=== PATIENT | female | born 1965 | race Caucasian/White ===

== ENCOUNTER 2021-08-17 12:19 | Day surgery (SDC) | payer BC, OTHER ==
[2021-08-08 13:47] LABS: EOSINOPHILS # (AUTO) 0.2 X10'3 (0-0.9); MEAN PLATELET VOLUME 8.9 FL (7.4-10.4); PRE OP HEMOGLOBIN 13.7 g/dL (12.0-16.0)
[2021-08-08 13:48] LABS: BASOPHILS % (AUTO) 0.6 % (0-1); EOSINOPHILS % (AUTO) 2.4 % (0-6); LYMPHOCYTES # (AUTO) 1.5 X10'3 (1.1-4.8); LYMPHOCYTES % (AUTO) 22.8 % (21-51); MEAN CORPUSCULAR HEMOGLOBIN 29.7 PG (27.0-31.0); MONOCYTES # (AUTO) 0.5 X10'3 (0-0.9); MONOCYTES % (AUTO) 7.9 % (2-12); NEUTROPHILS # (AUTO) 4.4 X10'3 (1.8-7.7); NEUTROPHILS % (AUTO) 66.3 % (42-75); PRE OP HEMATOCRIT 41.4 % (35.0-45.0); PRE OP PLATELET COUNT 273 X10'3 (140-440); RED CELL DISTRIBUTION WIDTH 13.9 % (11.5-14.5)
[2021-08-08 13:55] LABS: ALBUMIN 3.8 G/DL (3.4-5.0); ALBUMIN/GLOBULIN RATIO 1.1 (1.1-1.5); ALKALINE PHOSPHATASE 100 IU/L (46-116); BLOOD UREA NITROGEN 11 MG/DL (7-18); BUN/CREATININE RATIO 15.3 (6.6-38.0); CALCIUM 9.2 MG/DL (8.5-10.1); CHLORIDE 101 MMOL/L (99-107); CREATININE 0.72 MG/DL (0.40-0.90); PRE OP ALT 36 U/L (30-65); PRE OP ANION GAP 8 (8-16); PRE OP AST 19 U/L (10-37); PRE OP BILIRUB, TOTAL 0.4 MG/DL (0.0-1.0); PRE OP GLUCOSE 93 MG/DL (70-104); PRE OP PROTIME 10.3 SECONDS (9.0-12.0); PRE OP SODIUM 141 MMOL/L (135-145); TOTAL CARBON DIOXIDE 31.6 MMOL/L (24-32); TOTAL PROTEIN 7.3 G/DL (6.4-8.2); eGFR 83 ML/MIN
[~2021-08-17] VITALS: Ht 172.7 cm; Wt 101.2 kg
[~2021-08-17 12:19] MED LIST: APIX5TAB3 PO; ATOR40TA PO; DULO20CA50 PO; GABA-530 PO; PRAM2.252 PO; clindamycin-Cleocin 900mg/D5W 50 ML IV ONE; famotidine 20mg tablet PO ONE; ringers solution, lacted 1,000 ML IV SCH; vancomycin 1,500 MG in NS 300ml IV soln IV ONE
[2021-08-17] MEDS ORDERED: ENOX40SY7 SUBCUT (13:26)
[2021-08-17] MEDS ORDERED: scopolamine 1mg/72 hr patch TD ONE (15:10)
[2021-08-17 15:26] VITALS: BP 151/96
[2021-08-17 15:36] VITALS: BP 151/96
[2021-08-17] MEDS ORDERED: hydrALAZINE 20mg/ml inj. IV PRN (17:25)
[2021-08-17] MEDS ORDERED: ondansetron/PF 4mg/2ml inj IV PRN (17:25)
[2021-08-17] MEDS ORDERED: morphine 4 MG/ML inj SYRINge IV PRN (17:25)
[2021-08-17] MEDS ORDERED: morphine 2 MG/ML inj. syringe IV PRN (17:25)
[2021-08-17] MEDS ORDERED: labetalol 20mg/4ml (5mg/ml) syringe IV PRN (17:25)
[2021-08-17] MEDS ORDERED: meperidine/PF 25mg/ml syringe IV PRN (17:25)
[2021-08-17] MEDS ORDERED: ringers solution, lacted 1,000 ML IV SCH (17:25)
[2021-08-17] MEDS ORDERED: proCHLORperazine 10 MG/2 ml inj IV PRN (17:25)
[2021-08-17] MEDS ORDERED: acetaminophen 1,000mg/100ml IV 100 ML IV PRN (17:25)
[2021-08-17] MEDS ORDERED: enoxaparin 40mg/0.4ml syringe SUBCUT ONE (17:40)
--- NOTE | 2021-08-17 18:08 | NUR ---
PT SURGERY CANCELED BY DR MCMILLAN. IV DC'D, LOVENOX 40MG SUBCUT GIVEN IN RIGHT BAD. PT SURGERY RESCHEDULED FOR SUNDAY PER DR MCMILLAN. PT WHEELED OUT OF HOSPITAL TO P[T CAR WHERE WAS WAITING FOR HER. DR MCMILLAN INFORMED PT TO COME TO HIS OFFICE TOMORROW FOR LOVENOX. Addendum: 08/17/21 at 1817 by Larissa Bernardo RN, RN Amended: Links added.
== END 2021-08-17 18:05 | disposition home or self-care (01) ==
LOC: PAS 12:19
PROVIDERS: ATTEND Orthopaedic Surgery
DX: T84.84XA Pain due to internal orthopedic prosthetic devices, implants and grafts, initial encounter (principal); Z53.8 Procedure and treatment not carried out for other reasons; I10 Essential (primary) hypertension; J45.909 Unspecified asthma, uncomplicated; M19.90 Unspecified osteoarthritis, unspecified site; E66.9 Obesity, unspecified; Z68.33 Body mass index [BMI] 33.0-33.9, adult; Z87.442 Personal history of urinary calculi; Z86.16 Personal history of COVID-19; Z87.891 Personal history of nicotine dependence; Z79.01 Long term (current) use of anticoagulants; Z20.822 Contact with and (suspected) exposure to COVID-19; Z79.899 Other long term (current) drug therapy; Z72.89 Other problems related to lifestyle; Z98.890 Other specified postprocedural states; Z90.710 Acquired absence of both cervix and uterus; Z88.8 Allergy status to other drugs, medicaments and biological substances; Z88.1 Allergy status to other antibiotic agents; Z91.011 Allergy to milk products; Z91.040 Latex allergy status; Z91.09 Other allergy status, other than to drugs and biological substances; Y83.8 Other surgical procedures as the cause of abnormal reaction of the patient, or of later complication, without mention of misadventure at the time of the procedure; Y92.89 Other specified places as the place of occurrence of the external cause
CPT/HCPCS: 36415; 80053; 85025; 85610; 85730; 87081; 93005; U0003; U0005; 82948; J1650; J3370; J7040; J7120

== ENCOUNTER 2021-08-19 10:30 | Day surgery (SDC) | payer BC ==
[~2021-08-19] VITALS: Ht 172.7 cm; Wt 101.4 kg
[2021-08-19] VITALS (11 sets, daily range): BP systolic 76–152; BP diastolic 42–96
[~2021-08-19 10:30] MED LIST changes: +ENOX40SY7 SUBCUT
[2021-08-19] MEDS ORDERED: scopolamine 1.5mg patch.TD72 (72-hour patch) TD ONE (11:40)
--- NOTE | 2021-08-19 11:53 | NUR ---
MED WOULD NOT SCAN
[2021-08-19] MEDS ORDERED: diphenhydrAMINE 50 mg/ml inj IV ONE (13:15)
--- NOTE | 2021-08-19 13:30 | NUR ---
PIV TO RIGHT A/C INFILTRATED WHILE VANCOMYCIN INFUSING-ACCORDING TO PUMP, 60CC INFUSED, AREA ITCHY RED AND WARM, IV D/CD-CANULA INTACT WARM PACK PLACED ON AREA. 25MG BENADRYL GIVEN IVP. PIV 20G TO LEFT A/C STARTED WITH EXCELLENT BLOOD RTN, VANCO RESTARTED SLOWLY AT 50CC/HR-EDUCATED PT TO INFORM OF ANY PAIN OR CHANGES, WILL MONITOR FREQUENTLY. CALL LIGHT IN REACH.
[2021-08-19] MEDS ORDERED: vancomycin 1,000mg inj ONE (14:08)
--- NOTE | 2021-08-19 14:10 | NUR ---
PT ITCHING BETTER SINCE BENADRYL, REDNESS AND DISCOMFORT SUBSIDING TO AFFECTED AREA -WARM PACKS STILL IN PLACE, L PIV WORKING WELL. PT COMFORTABLE, WATCHING MOVIE ON PHONE. DR. MARCELO IN TO SEE PT.-NO NEW ORDERS GIVEN.
[2021-08-19] MEDS ORDERED: fentaNYL/PF 50MCG/1 ML 2ML syringe ONE (14:27)
[2021-08-19] MEDS ORDERED: MIDAZolam 1 MG/ML 5ML VIAL ONE (14:27)
[2021-08-19] MEDS ORDERED: meperidine/PF 25mg/ml syringe IV PRN ×3 (15:30)
[2021-08-19] MEDS ORDERED: morphine 4 MG/ML inj SYRINge IV PRN (15:30)
[2021-08-19] MEDS ORDERED: morphine 2 MG/ML inj. syringe IV PRN (15:30)
[2021-08-19] MEDS ORDERED: ondansetron/PF 4mg/2ml inj IV PRN (15:30)
[2021-08-19] MEDS ORDERED: proCHLORperazine 10 MG/2 ml inj IV PRN (15:30)
[2021-08-19] MEDS ORDERED: ringers solution, lacted 1,000 ML IV SCH (15:30)
[2021-08-19] MEDS ORDERED: BUPIVAcaine/PF 2.5 mg/ml (0.25%) 30ml vial ONE (15:45)
[2021-08-19] MEDS ORDERED: propofol inj 20 ML IV ONE ×2 (16:05)
--- NOTE | 2021-08-19 16:07 | NUR ---
Received from OR via [facility] , accompanied by Anesthesiologist DAVIAN and report given by Anesthesiolgist. T9 SENSATION LEVEL AT THIS TIME FROM SPINAL ANESTHESIA. VSS. DENIES PAIN AT THIS TIME. LEFT THIGH DRESSED IN RICARDO BANDAGE. Addendum: 08/19/21 at 1627 by Anton Bernardo RN, RN Amended: Links added.
[2021-08-19] MEDS ORDERED: HYDROcodone/acetaminophen 10/325mg tab PO PRN ×2 (17:20)
--- NOTE | 2021-08-19 17:27 | NUR ---
PATIENT HAS MET ALL CRITERIA FOR TRANSFER TO THE PCU FLOOR. VSS. DRESSINGS INTACT. BED LOW, CALL LIGHT PRESENT AND 2 RAILS UP. RN PRESENT TO ACCEPT CARE OF PATIENT AND REPORT HAS BEEN CALLED. ALL QUESTIONS ANSWERED TO ACCEPTING IVAN OLIVER. DENIES PAIN MANLEY. PASSIVE TRANSFER X4 TO BED. CARE TURNED OVER TO IVAN DELGADO. Addendum: 08/19/21 at 1749 by Anton Sargent - IVAN LOVE Amended: Links added.
--- NOTE | 2021-08-19 18:31 | NUR ---
Problems reprioritized. Patient report given, questions answered & plan of care reviewed with Carmela LOVE.
== END 2021-08-19 21:17 | disposition home or self-care (01) ==
LOC: PAS 10:30 → PCU 3S 18:56 → PAS 21:17
PROVIDERS: ATTEND Orthopaedic Surgery
DX: T84.84XA Pain due to internal orthopedic prosthetic devices, implants and grafts, initial encounter (principal); J45.909 Unspecified asthma, uncomplicated; M19.90 Unspecified osteoarthritis, unspecified site; I10 Essential (primary) hypertension; E66.9 Obesity, unspecified; Z68.34 Body mass index [BMI] 34.0-34.9, adult; Z72.89 Other problems related to lifestyle; Z87.891 Personal history of nicotine dependence; Z86.711 Personal history of pulmonary embolism; Z86.718 Personal history of other venous thrombosis and embolism; Z87.442 Personal history of urinary calculi; Z91.09 Other allergy status, other than to drugs and biological substances; Z91.040 Latex allergy status; Z88.8 Allergy status to other drugs, medicaments and biological substances; Z88.1 Allergy status to other antibiotic agents; Z79.899 Other long term (current) drug therapy; Z79.01 Long term (current) use of anticoagulants; Y83.8 Other surgical procedures as the cause of abnormal reaction of the patient, or of later complication, without mention of misadventure at the time of the procedure; Y92.89 Other specified places as the place of occurrence of the external cause
CPT/HCPCS: 20680; 73552; 76000; 82948; J1200; J2250; J2270; J2405; J2704; J3010; J3370; J3490; J7030; J7040; J7120; Z7506; Z7508; Z7512; A4215; A4618; A6449; A7000; G0378

== ENCOUNTER 2022-07-05 06:27 | Inpatient (IN) | payer BC ==
[2022-06-26 12:37] LABS: BASOPHILS # (AUTO) 0.1 X10'3 (0-0.2); BASOPHILS % (AUTO) 0.7 % (0-1); EOSINOPHILS # (AUTO) 0.2 X10'3 (0-0.9); LYMPHOCYTES % (AUTO) 25.8 % (21-51); MEAN CORPUSCULAR HEMOGLOBIN 30.8 PG (27.0-31.0); MEAN CORPUSCULAR HGB CONC 33.3 g/dL (33.0-36.5); MEAN CORPUSCULAR VOLUME 92.4 FL (78-98); MEAN PLATELET VOLUME 9.2 FL (7.4-10.4); MONOCYTES # (AUTO) 0.6 X10'3 (0-0.9); MONOCYTES % (AUTO) 7.5 % (2-12); PRE OP HEMATOCRIT 42.4 % (35.0-45.0); PRE OP HEMOGLOBIN 14.1 g/dL (12.0-16.0); PRE OP PLATELET COUNT 279 X10'3 (140-440); RED BLOOD COUNT 4.59 X10'6 (4.20-5.60); RED CELL DISTRIBUTION WIDTH 13.7 % (11.5-14.5)
[2022-06-26 12:52] LABS: ALBUMIN 3.7 G/DL (3.4-5.0); ALBUMIN/GLOBULIN RATIO 1.1 (1.1-1.5); ALKALINE PHOSPHATASE 99 IU/L (46-116); BLOOD UREA NITROGEN 14 MG/DL (7-18); BUN/CREATININE RATIO 17.9 (6.6-38.0); CALCIUM 9.1 MG/DL (8.5-10.1); CHLORIDE 104 MMOL/L (99-107); CREATININE 0.78 MG/DL (0.40-0.90); PRE OP ALT 22 U/L (30-65); PRE OP ANION GAP 4 (8-16); PRE OP AST 18 U/L (10-37); PRE OP BILIRUB, TOTAL 0.2 MG/DL (0.0-1.0); PRE OP GLUCOSE 94 MG/DL (70-104); PRE OP POTASSIUM 4.2 MMOL/L (3.4-5.1); PRE OP SODIUM 138 MMOL/L (135-145); TOTAL CARBON DIOXIDE 30.2 MMOL/L (24-32); TOTAL PROTEIN 7.2 G/DL (6.4-8.2); eGFR 76 ML/MIN
[~2022-07-05] VITALS: Ht 172.7 cm; Wt 99.7 kg
[2022-07-05] VITALS (16 sets, daily range): BP systolic 96–138; BP diastolic 57–88
[~2022-07-05 06:27] MED LIST changes: -ATOR40TA PO; -DULO20CA50 PO; -ENOX40SY7 SUBCUT; -GABA-530 PO; +LISI20TA28 PO; +PRAM1.5T7 PO; -PRAM2.252 PO; +SERT50TA PO; +TRAM50TA2 PO; +tranexamic acid inj. 1,000 MG in normal saline IV soln 100ML IV ONE
[2022-07-05] MEDS ORDERED: epiNEPHrine 1 mg/ml inj ONE (07:35)
[2022-07-05] MEDS ORDERED: ketorolac trometh. 30mg/ml inj. ONE (07:35)
[2022-07-05] MEDS ORDERED: ROPIVAcaine 0.5% (5mg/ml) 30ml vial ONE ×2 (07:36)
[2022-07-05] MEDS ORDERED: cloNIDine hcl/PF 100mcg/ml inj ONE (07:36)
[2022-07-05] MEDS ORDERED: morphine 10mg/ml inj. ONE (07:36)
[2022-07-05] MEDS ORDERED: vancomycin 1,000mg inj ONE (07:36)
[2022-07-05] MEDS ORDERED: MIDAZolam 1mg/ml 10ml vial ONE (08:29)
[2022-07-05] MEDS ORDERED: fentaNYL/PF 50MCG/1 ML 2ML syringe ONE (08:29)
[2022-07-05] MEDS ORDERED: ePHEDrine 50MG/ML INJ. ONE (09:07)
[2022-07-05] MEDS ORDERED: diphenhydrAMINE 50 mg/ml inj ONE (09:12)
[2022-07-05] MEDS ORDERED: propofol inj 20 ML IV ONE (09:58)
[2022-07-05] MEDS ORDERED: BUPIVAcaine/PF 7.5mg/ml (0.75%) 10ml vial ONE (10:03)
[2022-07-05] MEDS ORDERED: meperidine/PF 25mg/ml syringe IV PRN ×3 (10:55)
[2022-07-05] MEDS ORDERED: ondansetron/PF 4mg/2ml inj IV PRN ×2 (10:55→12:25)
[2022-07-05] MEDS ORDERED: proCHLORperazine 10 MG/2 ml inj IV PRN (10:55)
[2022-07-05] MEDS ORDERED: ringers solution, lacted 1,000 ML IV SCH (10:55)
[2022-07-05] MEDS ORDERED: morphine 4 MG/ML inj SYRINge IV PRN (10:55)
[2022-07-05] MEDS ORDERED: morphine 2 MG/ML inj. syringe IV PRN (10:55)
[2022-07-05] MEDS ORDERED: ROPIVAcaine 0.2% (10 MG/5 ML) BOLUS INJECTION ADDCANAL PRN (11:00)
[2022-07-05] MEDS ORDERED: midazolam 1 mg/ML 2ml injection ONE (11:53)
[2022-07-05] MEDS ORDERED: bisacodyl 10mg suppository rectal RC PRN (12:25)
[2022-07-05] MEDS ORDERED: acetaminophen 325mg tablet PO PRN (12:25)
[2022-07-05] MEDS ORDERED: magnesium hydroxide 30ml (MOM) UD suspension PO PRN (12:25)
[2022-07-05] MEDS ORDERED: diphenhydrAMINE 25mg capsule PO PRN ×2 (12:25)
[2022-07-05] MEDS: potassium cl 20mEq in 1/2 NS 1,000 ML IV SCH ×2 (12:25→21:09)
[2022-07-05] MEDS ORDERED: naloxone 0.4 mg/ml inj IV PRN (12:25)
[2022-07-05] MEDS ORDERED: HYDROcodone/acetaminophen 10/325mg tab PO ONE (12:35)
--- NOTE | 2022-07-05 12:43 | NUR ---
Received from OR via BED, accompanied by Anesthesiologist and report given by MARI Anesthesiologist. PATIENT WAKING UP, DENIES PAIN, V/S WNL, SCD ON, 20G TO RIGHT HAND, DRESSING to LEFT KNEE C/D/I with ICE PACK. ON-Q CATHETER NOTED WITH C/D/I AND WILL START ROPIVACAINE DRIP AT 2 CC/HR. HENAO CATHETER DRAINING CLEAR YELLOW URINE. Addendum: 07/05/22 at 1315 by Kyle Otero RN Amended: Links added.
[2022-07-05] MEDS: gabapentin 300mg capsule PO SCH ×2 (13:00→21:02)
[2022-07-05] MEDS: ROPIVAcaine 0.2%/PF PUMP/bolus 545 ML ADDCANAL SCH (13:00)
--- NOTE | 2022-07-05 13:11 | NUR ---
report received from Bradford LOVE, awaiting pt to the floor in room 358A
--- NOTE | 2022-07-05 13:23 | NUR ---
PATIENT HAS MET ALL CRITERIA FOR TRANSFER TO THE SURGICAL FLOOR. VSS. DRESSINGS INTACT. BED LOW, CALL LIGHT PRESENT AND 2 RAILS UP. RN PRESENT TO ACCEPT CARE OF PATIENT AND REPORT HAS BEEN CALLED. ALL QUESTIONS ANSWERED TO ACCEPTING RN. Addendum: 07/05/22 at 1331 by Kyle Otero RN Amended: Links added.
[2022-07-05] MEDS: acetaminophen 325mg tablet PO SCH ×2 (14:00→20:00)
--- NOTE | 2022-07-05 18:47 | NUR ---
Problems reprioritized. Patient report given, questions answered & plan of care reviewed with Js LOVE.
[2022-07-05] MEDS: HYDROcodone/acetaminophen 10/325mg tab PO PRN (19:12)
[2022-07-05] MEDS ORDERED: traMADol 50MG tablet PO PRN (19:25)
[2022-07-05] MEDS ORDERED: vancomycin/NS 1 GM ADD-VANTAGE 250 ML IV SCH (20:00)
[2022-07-05] MEDS: enoxaparin 30mg/0.3ml syringe SQ SCH (21:01)
[2022-07-05] MEDS: sennosides 8.6mg tablet PO SCH (21:01)
[2022-07-05] MEDS: pramipexole 1mg tablet PO SCH (21:02)
[2022-07-05] MEDS: sertraline 50mg tablet PO SCH (21:02)
[2022-07-06] MEDS: acetaminophen 325mg tablet PO SCH ×4 (00:56→20:00)
[2022-07-06 02:00] VITALS: BP 109/64
[2022-07-06] MEDS: potassium cl 20mEq in 1/2 NS 1,000 ML IV SCH ×4 (04:25→23:15)
[2022-07-06] MEDS: HYDROcodone/acetaminophen 10/325mg tab PO PRN ×5 (05:38→21:48)
--- NOTE | 2022-07-06 05:48 | NUR ---
pt states "I won't be able to function if I take 2 norco, i'm telling you that right now. So I'm only taking one norco. I don't want 2" unable to scan 1 tablet so adminstered and scanned 2 tablets, wasted one tablet in the omni with RN witness. will request order from Dr. Moore for 1 tablet.
[2022-07-06 06:00] VITALS: BP 104/68
--- NOTE | 2022-07-06 06:35 | NUR ---
reported to days. noted pt ready for physical therapy. noted pt will need order for 1 norco instead of just 2 tabs.
--- NOTE | 2022-07-06 06:58 | NUR ---
Patient in room [facility]. I have received report from Antonia LOVE and had the opportunity to ask questions and assume patient care.
[2022-07-06] MEDS: enoxaparin 30mg/0.3ml syringe SQ SCH ×2 (08:07→21:46)
[2022-07-06] MEDS: gabapentin 300mg capsule PO SCH ×3 (08:09→21:46)
[2022-07-06] MEDS: lisinopril 20mg tablet PO SCH (08:12)
[2022-07-06 10:00] VITALS: BP 93/55
[2022-07-06 18:00] VITALS: BP 89/54
--- NOTE | 2022-07-06 18:42 | NUR ---
Problems reprioritized. Patient report given, questions answered & plan of care reviewed with Marian Arthur.
[2022-07-06 19:00] VITALS: BP 137/67
--- NOTE | 2022-07-06 19:54 | NUR ---
Gabapentin missed at 1300, over ratio, critical pts, charge with pts. No resource, Busy and missed med time.
[2022-07-06] MEDS: celeCOXIB 100mg capsule PO SCH (21:45)
[2022-07-06] MEDS: sertraline 50mg tablet PO SCH (21:45)
[2022-07-06] MEDS: sennosides 8.6mg tablet PO SCH (21:45)
[2022-07-06] MEDS: pramipexole 1mg tablet PO SCH (21:49)
[2022-07-06 22:00] VITALS: BP 110/63
[2022-07-07] MEDS: acetaminophen 325mg tablet PO SCH ×2 (02:00→07:53)
[2022-07-07] MEDS: HYDROcodone/acetaminophen 10/325mg tab PO PRN ×2 (05:22→10:13)
[2022-07-07 06:00] VITALS: BP 125/62
[2022-07-07 06:09] LABS: BASOPHILS % (AUTO) 0.4 % (0-1); EOSINOPHILS # (AUTO) 0.3 X10'3 (0-0.9); EOSINOPHILS % (AUTO) 4.7 % (0-6); HEMATOCRIT 27.2 % (35.0-45.0); HEMOGLOBIN 9.1 g/dl (12.0-16.0); LYMPHOCYTES # (AUTO) 2.1 X10'3 (1.1-4.8); LYMPHOCYTES % (AUTO) 28.4 % (21-51); MEAN CORPUSCULAR HEMOGLOBIN 31.4 PG (27.0-31.0); MEAN CORPUSCULAR HGB CONC 33.5 g/dL (33.0-36.5); MEAN CORPUSCULAR VOLUME 93.7 FL (78-98); MEAN PLATELET VOLUME 8.8 FL (7.4-10.4); MONOCYTES # (AUTO) 0.7 X10'3 (0-0.9); MONOCYTES % (AUTO) 9.5 % (2-12); NEUTROPHILS # (AUTO) 4.2 X10'3 (1.8-7.7); PLATELET COUNT 188 X10'3 (140-440); RED CELL DISTRIBUTION WIDTH 13.9 % (11.5-14.5); WHITE BLOOD COUNT 7.4 X10'3 (4.5-11.0)
[2022-07-07 06:27] LABS: ANION GAP 5 (8-16); CHLORIDE 106 MMOL/L (99-107); POTASSIUM 4.1 MMOL/L (3.5-5.1); SODIUM 141 MMOL/L (135-145); TOTAL CARBON DIOXIDE 29.8 MMOL/L (24-32)
--- NOTE | 2022-07-07 06:31 | NUR ---
reported to days. noted pt needs encouragement for PT and going home today with help from . dressing change to take place prior to discharge. norco given at 0500.
[2022-07-07] MEDS: celeCOXIB 100mg capsule PO SCH (07:53)
[2022-07-07] MEDS: gabapentin 300mg capsule PO SCH (07:53)
[2022-07-07] MEDS: enoxaparin 30mg/0.3ml syringe SQ SCH (07:54)
[2022-07-07] MEDS: lisinopril 20mg tablet PO SCH (07:54)
[2022-07-07 10:07] VITALS: BP 98/58
[2022-07-07] MEDS: ROPIVAcaine 0.2%/PF PUMP/bolus 545 ML ADDCANAL SCH (10:20)
[2022-07-07] MEDS ORDERED: acetaminophen 325mg tablet PO PRN (12:25)
== END 2022-07-07 12:57 | disposition home or self-care (01) | DRG 468 ==
LOC: PAS IN 06:27 → SUR 3N 13:28
PROVIDERS: ADMIT Orthopaedic Surgery; ATTEND Orthopaedic Surgery
PROC: 0SPD0LZ Removal of Medial Unicondylar Synthetic Substitute from Left Knee Joint, Open Approach (ICD-10-PCS; 2022-07-05)
PROC: 0SPD0NZ Removal of Patellofemoral Synthetic Substitute from Left Knee Joint, Open Approach (ICD-10-PCS; 2022-07-05)
PROC: 3E0T3BZ Introduction of Anesthetic Agent into Peripheral Nerves and Plexi, Percutaneous Approach (ICD-10-PCS; 2022-07-05)
PROC: 3E0T33Z Introduction of Anti-inflammatory into Peripheral Nerves and Plexi, Percutaneous Approach (ICD-10-PCS; 2022-07-05)
PROC: 0SRD0J9 Replacement of Left Knee Joint with Synthetic Substitute, Cemented, Open Approach (ICD-10-PCS; principal; 2022-07-05 08:32)
DX: M17.12 Unilateral primary osteoarthritis, left knee (principal); Z86.711 Personal history of pulmonary embolism; Z86.718 Personal history of other venous thrombosis and embolism
CPT/HCPCS: Z7506; Z7508; 36415; 73560; 80051; 80053; 82948; 85025; 87081; 93005; 97110; 97116; 97162; 97530; A4215; A6253; A6258; A6446; A6449; A7000; C1713; C1758; C1776; C9250; G0378; J0171; J0735; J1200; J1650; J1885; J2250; J2274; J2704; J2795; J3010; J3370; J3480; J3490; J7040; J7120

== ENCOUNTER 2022-07-24 11:34 | Outpatient (CLI) | payer BC ==
[~2022-07-24 11:34] MED LIST changes: -clindamycin-Cleocin 900mg/D5W 50 ML IV ONE; -famotidine 20mg tablet PO ONE; -ringers solution, lacted 1,000 ML IV SCH; -tranexamic acid inj. 1,000 MG in normal saline IV soln 100ML IV ONE; -vancomycin 1,500 MG in NS 300ml IV soln IV ONE
== END 2022-07-24 23:59 | disposition home or self-care (01) ==
LOC: VAS 11:34
PROVIDERS: ATTEND Orthopaedic Surgery
DX: I82.532 Chronic embolism and thrombosis of left popliteal vein (principal); R22.42 Localized swelling, mass and lump, left lower limb; M25.562 Pain in left knee
CPT/HCPCS: 93971

== ENCOUNTER 2022-10-23 15:27 | Outpatient (CLI) | payer BC ==
[2022-10-23 17:23] LABS: GLUCOSE,SYNOVIAL FLUID 130 MG/DL; TOTAL PROTEIN,SYNOVIAL FLUID 3.8 GM/DL
[2022-10-23 18:47] LABS: APPEARANCE,SYNOVIAL FLUID CLEAR; COLOR,SYNOVIAL FLUID YELLOW
[2022-10-23 18:48] LABS: LYMPHOCYTES,SYNOVIAL FLUID 100 % (0-75); NEUTROPHILS,SYNOVIAL FLUID 0 % (0-25); SYN RBC 623 /CU MM (0); SYN WBC 24 /CU MM (0-200)
== END 2022-10-23 23:59 | disposition home or self-care (01) ==
LOC: LAB SPEC 15:27
PROVIDERS: ATTEND Orthopaedic Surgery
DX: T84.53XA Infection and inflammatory reaction due to internal right knee prosthesis, initial encounter (principal); Y83.8 Other surgical procedures as the cause of abnormal reaction of the patient, or of later complication, without mention of misadventure at the time of the procedure; Y92.89 Other specified places as the place of occurrence of the external cause
CPT/HCPCS: 82945; 84157; 87070; 87075; 89051